=== PATIENT | male | born 1965 | race Caucasian/White ===

== ENCOUNTER 2020-10-07 14:51 | Inpatient (IN) | payer OTHER ==
[2020-10-07] MEDS: MELATONIN 5 MG TABLETS PO SCH (11:27)
[2020-10-07] MEDS: THIAMINE HCL 100 MG TABLET (FP) PO SCH (11:27)
[2020-10-07] MEDS ORDERED: guaiFENesin 200 MG/10 ML 10 ML UNIT-DOSE CUPS PO PRN (20:55)
[2020-10-07] MEDS ORDERED: NALOXONE HCL 0.4 MG/ML VIAL IM PRN (20:55)
[2020-10-07] MEDS ORDERED: MAG HYDROX/AL HYDROX/SIMETH 30 ML UNIT-DOSE CUP PO PRN (20:55)
[2020-10-07] MEDS ORDERED: LOPERAMIDE HCL 2 MG CAPSULE PO PRN (20:55)
[2020-10-07] MEDS ORDERED: P-EPHED 60MG/TRIPROLIDI 2.5MG TABLET PO PRN (20:55)
[2020-10-07] MEDS ORDERED: MAGNESIUM HYDROX 2400MG/30ML ORAL SUSPENSION 30 ML CUP PO PRN (20:55)
[2020-10-07] MEDS ORDERED: NALOXONE (NARCAN) HCL 4 MG/0.1 ML SPRAY NS PRN (20:55)
[2020-10-07] MEDS ORDERED: IBUPROFEN 400 MG TABLET (FP) PO PRN (20:55)
[2020-10-07] MEDS ORDERED: MAGNESIUM CITRATE 300 ML BOTTLE PO PRN (20:55)
[2020-10-07] MEDS ORDERED: ACETAMINOPHEN 325 MG TABLET (FP) PO PRN (20:55)
[2020-10-07 21:18] VITALS: BMI 16.9
[2020-10-08] MEDS: PRENATAL VITAMINS W/ FOLIC ACID TABLET (FP) PO SCH (10:25)
[2020-10-08] MEDS: THIAMINE HCL 100 MG TABLET (FP) PO SCH (21:41)
[2020-10-08] MEDS: hydrOXYzine PAMOATE 25 MG CAPSULE (FP) PO PRN (21:41)
[2020-10-08] MEDS: SUVOREXANT 10 MG TABLET PO PRN (21:42)
[2020-10-09] MEDS: PRENATAL VITAMINS W/ FOLIC ACID TABLET (FP) PO SCH (11:10)
[2020-10-09] MEDS: buPROPion HCL 75 MG TABLET PO SCH (11:10)
[2020-10-09] MEDS: THIAMINE HCL 100 MG TABLET (FP) PO SCH (21:52)
[2020-10-09] MEDS: hydrOXYzine PAMOATE 25 MG CAPSULE (FP) PO PRN (21:52)
[2020-10-09] MEDS: SUVOREXANT 10 MG TABLET PO PRN (21:53)
[2020-10-10] MEDS: buPROPion HCL 75 MG TABLET PO SCH (10:34)
[2020-10-10] MEDS: PRENATAL VITAMINS W/ FOLIC ACID TABLET (FP) PO SCH (10:34)
[2020-10-10 17:28] LABS: PH,URINE 7.5 (5.0-8.0); URINE APPEARANCE CLEAR; URINE BILIRUBIN NEGATIVE (NEGATIVE); URINE COLOR YELLOW; URINE GLUCOSE (UA) NEGATIVE (NEGATIVE); URINE KETONE NEGATIVE (NEGATIVE); URINE LEUK ESTERASE NEGATIVE (NEGATIVE); URINE NITRITE NEGATIVE (NEGATIVE); URINE PROTEIN NEGATIVE (NEGATIVE)
[2020-10-10] MEDS: hydrOXYzine PAMOATE 25 MG CAPSULE (FP) PO PRN (22:14)
[2020-10-10] MEDS: THIAMINE HCL 100 MG TABLET (FP) PO SCH (22:14)
[2020-10-10] MEDS: SUVOREXANT 10 MG TABLET PO PRN (22:14)
[2020-10-11] MEDS: buPROPion HCL 75 MG TABLET PO SCH (10:23)
[2020-10-11] MEDS: PRENATAL VITAMINS W/ FOLIC ACID TABLET (FP) PO SCH (10:23)
[2020-10-11] MEDS: THIAMINE HCL 100 MG TABLET (FP) PO SCH (22:05)
[2020-10-11] MEDS: SUVOREXANT 10 MG TABLET PO PRN (22:05)
[2020-10-11] MEDS: hydrOXYzine PAMOATE 25 MG CAPSULE (FP) PO PRN (22:05)
[2020-10-12] MEDS: PRENATAL VITAMINS W/ FOLIC ACID TABLET (FP) PO SCH (10:38)
[2020-10-12] MEDS: buPROPion HCL 75 MG TABLET PO SCH (10:39)
[2020-10-12] MEDS: SUVOREXANT 10 MG TABLET PO PRN (22:42)
[2020-10-12] MEDS: THIAMINE HCL 100 MG TABLET (FP) PO SCH (22:44)
[2020-10-13] MEDS: PRENATAL VITAMINS W/ FOLIC ACID TABLET (FP) PO SCH (10:26)
[2020-10-13] MEDS: buPROPion HCL 75 MG TABLET PO SCH (10:27)
[2020-10-13] MEDS: SUVOREXANT 10 MG TABLET PO PRN (21:10)
[2020-10-13] MEDS: THIAMINE HCL 100 MG TABLET (FP) PO SCH (21:10)
[2020-10-13] MEDS: hydrOXYzine PAMOATE 25 MG CAPSULE (FP) PO PRN (21:10)
[2020-10-14] MEDS: buPROPion HCL 75 MG TABLET PO SCH (10:16)
[2020-10-14] MEDS: PRENATAL VITAMINS W/ FOLIC ACID TABLET (FP) PO SCH (10:16)
[2020-10-14] MEDS: THIAMINE HCL 100 MG TABLET (FP) PO SCH (21:10)
[2020-10-14] MEDS: SUVOREXANT 10 MG TABLET PO PRN (21:10)
[2020-10-14] MEDS: hydrOXYzine PAMOATE 25 MG CAPSULE (FP) PO PRN (21:10)
[2020-10-15] MEDS: buPROPion HCL 75 MG TABLET PO SCH (10:42)
[2020-10-15] MEDS: PRENATAL VITAMINS W/ FOLIC ACID TABLET (FP) PO SCH (10:42)
[2020-10-15] MEDS: THIAMINE HCL 100 MG TABLET (FP) PO SCH (22:48)
[2020-10-15] MEDS: SUVOREXANT 10 MG TABLET PO PRN (22:50)
[2020-10-16] MEDS: buPROPion HCL 75 MG TABLET PO SCH (10:54)
[2020-10-16] MEDS: PRENATAL VITAMINS W/ FOLIC ACID TABLET (FP) PO SCH (10:54)
[2020-10-16] MEDS: SUVOREXANT 10 MG TABLET PO PRN (22:10)
[2020-10-16] MEDS: THIAMINE HCL 100 MG TABLET (FP) PO SCH (22:10)
[2020-10-17] MEDS: PRENATAL VITAMINS W/ FOLIC ACID TABLET (FP) PO SCH (10:50)
[2020-10-17] MEDS: buPROPion HCL 75 MG TABLET PO SCH (10:50)
[2020-10-17] MEDS: hydrOXYzine PAMOATE 25 MG CAPSULE (FP) PO PRN (22:26)
[2020-10-17] MEDS: MELATONIN 5 MG TABLETS PO SCH (22:26)
[2020-10-17] MEDS: THIAMINE HCL 100 MG TABLET (FP) PO SCH (22:26)
[2020-10-18] MEDS: PRENATAL VITAMINS W/ FOLIC ACID TABLET (FP) PO SCH (10:32)
[2020-10-18] MEDS: buPROPion HCL 75 MG TABLET PO SCH (10:33)
[2020-10-18] MEDS: hydrOXYzine PAMOATE 25 MG CAPSULE (FP) PO PRN (21:17)
[2020-10-18] MEDS: THIAMINE HCL 100 MG TABLET (FP) PO SCH (21:17)
[2020-10-19] MEDS: PRENATAL VITAMINS W/ FOLIC ACID TABLET (FP) PO SCH (11:07)
[2020-10-19] MEDS: buPROPion HCL 75 MG TABLET PO SCH (11:07)
[2020-10-19] MEDS: hydrOXYzine PAMOATE 25 MG CAPSULE (FP) PO PRN (21:14)
[2020-10-19] MEDS: THIAMINE HCL 100 MG TABLET (FP) PO SCH (21:14)
[2020-10-19] MEDS: SUVOREXANT 10 MG TABLET PO PRN (21:14)
[2020-10-20 07:38] VITALS: TEMP 97.1
[2020-10-20] MEDS: buPROPion HCL 75 MG TABLET PO SCH (10:47)
[2020-10-20] MEDS: PRENATAL VITAMINS W/ FOLIC ACID TABLET (FP) PO SCH (10:47)
[2020-10-20] MEDS: hydrOXYzine PAMOATE 25 MG CAPSULE (FP) PO PRN (21:12)
[2020-10-20] MEDS: SUVOREXANT 10 MG TABLET PO PRN (21:12)
[2020-10-20] MEDS: THIAMINE HCL 100 MG TABLET (FP) PO SCH (21:13)
[2020-10-21 08:23] VITALS: BP 123/86; PULSE 67
[2020-10-21] MEDS: PRENATAL VITAMINS W/ FOLIC ACID TABLET (FP) PO SCH (09:57)
[2020-10-21] MEDS: buPROPion HCL 75 MG TABLET PO SCH (09:57)
== END 2020-10-21 10:00 | disposition home or self-care (01) | DRG 772 ==
LOC: YASAS 14:51 → Y5N 20:42
PROVIDERS: ADMIT Allergy & Immunology; ATTEND Allergy & Immunology
PROC: HZ42ZZZ Group Counseling for Substance Abuse Treatment, Cognitive-Behavioral (ICD-10-PCS; principal; 2020-10-07)
DX: F11.20 Opioid dependence, uncomplicated (principal); F14.20 Cocaine dependence, uncomplicated; F25.9 Schizoaffective disorder, unspecified; K74.60 Unspecified cirrhosis of liver; G47.00 Insomnia, unspecified; E11.9 Type 2 diabetes mellitus without complications; B18.2 Chronic viral hepatitis C; Z59.0 Homelessness
CPT/HCPCS: 71046-TC-FY; 81003; 93005; 93010; C9803; U0003; U0005